=== PATIENT | male | born 1955 | race Caucasian/White ===

== ENCOUNTER 2018-09-01 07:59 | Day surgery (SDC) | payer OTHER ==
[~2018-09-01] VITALS: Ht 193 cm; Wt 90.7 kg
[2018-09-01] MEDS ORDERED: fentaNYL 0.05 MG/ML VIAL ONE (10:03)
[2018-09-01] MEDS ORDERED: MIDAZOLAM 2 MG/2 ML VIAL ONE (10:03)
[2018-09-01] MEDS ORDERED: LIDOCAINE 2% 100 MG/5 ML UJET TP ONE (10:03)
== END 2018-09-01 12:00 | disposition home or self-care (01) ==
LOC: MOR 07:59 → MMU 07:59 → MOR 12:00
PROVIDERS: ATTEND Internal Medicine Gastroenterology
DX: Z12.11 Encounter for screening for malignant neoplasm of colon (principal); K57.30 Diverticulosis of large intestine without perforation or abscess without bleeding; K29.70 Gastritis, unspecified, without bleeding; K29.80 Duodenitis without bleeding; K21.0 Gastro-esophageal reflux disease with esophagitis; K63.89 Other specified diseases of intestine; Z87.891 Personal history of nicotine dependence
CPT/HCPCS: 36415; 43239; 45378; 86677; J2250; J3010; J7030